=== PATIENT | female | born 1990 | race Hispanic/Latino ===

== ENCOUNTER 2018-10-25 20:27 | Emergency (ER) | payer MEDICAID, OTHER ==
[2018-10-25 22:01] LABS: BASOPHILS % (AUTO) 0.2 % (0.0-5.0); EOSINOPHILS % (AUTO) 0.2 % (0.0-8.0); HEMATOCRIT 43.3 % (36-48); LYMPHOCYTES % (AUTO) 5.6 % (21.0-51.0); MEAN CORPUSCULAR HEMOGLOBIN 29.7 pg (27.0-33.0); MEAN CORPUSCULAR HGB CONC 33.4 g/dL (32.0-36.0); MEAN CORPUSCULAR VOLUME 88.8 fL (79-99); MONOCYTES % (AUTO) 6.6 % (3.0-13.0); NEUTROPHILS % (AUTO) 87.4 % (40.0-77.0); PLATELET COUNT (AUTO) 312 K/uL (130-400); RED BLOOD CELL COUNT(AUTO) 4.88 MIL/uL (4.00-5.50); RED CELL DISTRIBUTION WIDTH 13.7 % (11.0-15.5); WHITE BLOOD COUNT (AUTO) 14.8 K/uL (4.8-10.8)
[2018-10-25 22:04] LABS: APPEARANCE,URINE Cloudy (CLEAR); BILIRUBIN,URINE Negative (NEGATIVE); COLOR,URINE Yellow (YELLOW); GLUCOSE, URINE (UA) Negative (NEGATIVE); KETONES,URINE Trace mg/dL (NEGATIVE); LEUKOCYTE ESTERASE ,URINE Trace (NEGATIVE); NITRATE,URINE Negative (NEGATIVE); OCCULT BLOOD,URINE Negative (NEGATIVE); PROTEIN,URINE Negative (NEGATIVE)
[2018-10-25] MEDS ORDERED: ONDANSETRON HCL 4 MG/2 ML VIAL ONE (22:13)
[2018-10-25] MEDS ORDERED: SODIUM CHLORIDE 0.9% 1000ML 1,000 ML IV ONE (22:13)
[2018-10-25] MEDS ORDERED: SIMETHICONE 80 MG TAB.CHEW ONE (22:13)
[2018-10-25] MEDS ORDERED: DICYCLOMINE HCL 20 MG TAB ONE (22:13)
[2018-10-25 22:17] LABS: HCG,QUAL RESULT NEGATIVE (NEGATIVE)
[2018-10-25 22:22] LABS: AMORPHOUS SEDIMENT,UR Few /LPF (None Seen); BACTERIA,URINE Few /HPF (None Seen); RBC,URINE 0-1 /HPF (0-1); SQUAMOUS EPITHELIAL CELL,UR Rare /HPF (0-2); WBC,URINE 0-1 /HPF (0-1)
[2018-10-25 22:29] LABS: CREATININE 0.8 mg/dL (0.5-1.5); POTASSIUM 3.5 mmol/L (3.5-5.1)
[2018-10-25 22:33] LABS: ALBUMIN 3.8 g/dL (3.5-5.0); BILIRUBIN,TOTAL 0.5 mg/dL (0.2-1.0); TOTAL PROTEIN, SERUM 7.2 g/dL (6.0-8.3)
[2018-10-25] MEDS ORDERED: KETOROLAC TROMETHAMINE 30MG/ML ONE (22:58)
== END 2018-10-25 23:46 | disposition home or self-care (01) ==
LOC: EDH 20:27
DX: B34.9 Viral infection, unspecified (principal); R11.2 Nausea with vomiting, unspecified; R19.7 Diarrhea, unspecified; R10.9 Unspecified abdominal pain
CPT/HCPCS: 36415; 80053; 81001; 81025; 85025; 87804 ×2; 96361; 96374; 96375; 99283; J1885; J2405; J7030

== ENCOUNTER 2022-02-25 00:45 | Emergency (ER) | payer BC, OTHER ==
[~2022-02-25] VITALS: Ht 165.1 cm; Wt 61.2 kg
[2022-02-25] MEDS ORDERED: KETOROLAC 30MG VIAL (30MG/ML) IM ONE (02:30)
[2022-02-25] MEDS ORDERED: ORPHENADRINE CITRATE 30 MG/ML ML IM ONE (02:30)
[2022-02-25 02:40] LABS: APPEARANCE,URINE Clear (CLEAR); BILIRUBIN,URINE Negative (NEGATIVE); COLOR,URINE Yellow (YELLOW); GLUCOSE, URINE (UA) Negative (NEGATIVE); KETONES,URINE Negative (NEGATIVE); LEUKOCYTE ESTERASE ,URINE Small (NEGATIVE); NITRATE,URINE Negative (NEGATIVE); OCCULT BLOOD,URINE Negative (NEGATIVE); PROTEIN,URINE Negative (NEGATIVE); UROBILINOGEN,URINE 0.2 mg/dL (0.2-1.0)
[2022-02-25 02:41] LABS: HCG,QUAL RESULT NEGATIVE (NEGATIVE)
[2022-02-25 02:53] LABS: RBC,URINE 0-1 /HPF (0-1)
[2022-02-25 02:54] LABS: BACTERIA,URINE None Seen /HPF (None Seen); SQUAMOUS EPITHELIAL CELL,UR Few /HPF (0-2)
[2022-02-25] MEDS ORDERED: TIZA-330 PO (03:08)
[2022-02-25 03:09] VITALS: BP 112/65
== END 2022-02-25 03:14 | disposition home or self-care (01) ==
LOC: EDH 00:45
DX: M54.50 Low back pain, unspecified (principal)
CPT/HCPCS: 81001; 81025; 96372 ×2; 99284; J1885; J2360